=== PATIENT | male | born 1980 | race African-American/Black ===

== ENCOUNTER 2017-09-27 02:06 | Emergency (ER) | payer OTHER ==
[~2017-09-27] VITALS: Ht 182.9 cm; Wt 81.7 kg
[2017-09-27] MEDS ORDERED: IBUPROFEN 800800 M1 PO (03:01)
[2017-09-27 03:39] VITALS: BP 110/78
== END 2017-09-27 03:40 | disposition home or self-care (01) ==
LOC: ER 02:06
DX: S93.402A Sprain of unspecified ligament of left ankle, initial encounter (principal); X58.XXXA Exposure to other specified factors, initial encounter; Y93.67 Activity, basketball; Y92.89 Other specified places as the place of occurrence of the external cause; Y99.8 Other external cause status